=== PATIENT | female | born 1955 | race African-American/Black ===

== ENCOUNTER 2018-04-17 08:44 | Outpatient (CLI) | payer BC | END 2018-04-17 08:45 | disposition home or self-care (01) | LOC: BICULT 08:44 | PROVIDERS: ATTEND Family Medicine | DX: K76.0 Fatty (change of) liver, not elsewhere classified (principal); R10.84 Generalized abdominal pain; Z90.49 Acquired absence of other specified parts of digestive tract; Z90.710 Acquired absence of both cervix and uterus | CPT/HCPCS: 76700; 76856 ==

== ENCOUNTER 2018-04-17 13:16 | Observation (INO) | payer BC ==
[2018-04-17 13:54] LABS: #Basophils 0.1 thou/uL (0.0-0.2); #Eosinphils 0.2 thou/uL (0.0-0.7); #Lymphocytes 4.4 thou/uL (1.20-3.40); #Monocytes 0.7 thou/uL (0.11-0.59); #Neutrophils 5.9 thou/uL (1.40-6.50); %Basophils 0.7 % (0.0-1.0); %Eosinophils 1.8 % (0.0-10.0); %Lymphocytes 39.4 % (21.0-51.0); %Monocytes 5.9 % (0.0-10.0); %Neutrophils 52.2 % (42.0-75.0); Hemoglobin 12.3 g/dL (12.0-16.0); Mean Corpuscular HGB CONC 33.5 g/dL (32.0-36.0); Mean Corpuscular Hemoglobin 29.7 pg (27.0-31.0); Mean Corpuscular Volume 88.7 fl (81.0-99.0); Mean Platelet Volume 8.2 fL (7.4-10.4); Platelet Count 226 thou/uL (130-400); RBC Distribution Width 11.3 % (11.5-14.5); Red Blood Cell (RBC) Count 4.15 mill/uL (4.20-5.40); White Blood Cell (WBC) Count 11.3 thou/uL (4.8-10.8)
--- NOTE | 2018-04-17 14:16 | RAD ---
2 VIEWS CHEST: Date: 04/17/18 COMPARISON: None. HISTORY: Chest pain and vibrations in heart for over a week. FINDINGS: Two views of the chest show normal sized cardiomediastinal silhouette. There is no evidence of consol idation, mass, or pleural effusion. The bones are unremarkable. IMPRESSION: No evidence of acute cardiopulmonary disease. POS: [facility]
[2018-04-17 14:22] LABS: ALT (SGPT) 52 U/L (8-55); AST (SGOT) 59 U/L (5-34); Albumin 4.4 g/dL (3.5-5.0); Alkaline Phosphatase 119 U/L (40-150); Anion Gap 9 mmol/L (10-20); BUN (Urea Nitrogen) 13 mg/dL (9.8-20.1); Bilirubin, Total 0.5 mg/dL (0.2-1.2); CK (CPK) 159 U/L (29-168); Calc. Creatinine Clearance 0 mL/min (70-130); Calcium 10.1 mg/dL (7.8-10.44); Carbon Dioxide 28 mmol/L (22-29); Chloride 108 mmol/L (98-107); Estimated GFR-MDRD 86; Globulin 2.9 g/dL (2.4-3.5); Lipase 50 U/L (8-78); Potassium 3.5 mmol/L (3.5-5.1); Protein, Total 7.3 g/dL (6.0-8.3); Sodium 141 mmol/L (136-145)
[2018-04-17 14:26] LABS: CKMB 1.3 ng/mL (0-6.6); Troponin I Less than 0.010 ng/mL (< 0.028)
[2018-04-17 14:27] LABS: Glucose 58 mg/dL (70-105)
[2018-04-17] MEDS ORDERED: Bisacodyl 5 MG TAB PO PRN (15:30)
[2018-04-17] MEDS ORDERED: Ondansetron HCl/PF 4 MG/2 ML Vial IVP PRN ×2 (15:30)
[2018-04-17] MEDS ORDERED: Dextrose 5% in Water 1,000 ML IV PRN (15:30)
[2018-04-17] MEDS ORDERED: Nitroglycerin 0.4 MG TAB (25 Tab Bottle) SL PRN (15:30)
[2018-04-17] MEDS ORDERED: HumaLOG 300 UNITS/3 ML VIAL SC PRN ×2 (15:30)
[2018-04-17] MEDS ORDERED: Mag-Al 1200 mg/1200 mg/30 ML UDCUP PO PRN (15:30)
[2018-04-17] MEDS ORDERED: Lorazepam 1 MG TAB PO PRN (15:30)
[2018-04-17] MEDS ORDERED: Loratadine 10 MG TAB PO PRN (15:30)
[2018-04-17] MEDS ORDERED: Benzonatate 100 MG CAP PO PRN (15:30)
[2018-04-17] MEDS ORDERED: Diabetic Tussin 200 MG/10 ML UDCUP PO PRN (15:30)
[2018-04-17] MEDS ORDERED: hydrALAZINE 20 MG/ML VIAL SLOW IVP PRN (15:30)
[2018-04-17] MEDS ORDERED: traMADol HCl 50 MG TAB PO PRN (15:30)
[2018-04-17] MEDS ORDERED: Dextrose 50% Abboject 50 ML SYRINGE SLOW IVP PRN (15:30)
[2018-04-17] MEDS ORDERED: cloNIDine 0.1 MG TAB PO PRN (15:30)
[2018-04-17] MEDS ORDERED: Calcium Carbonate 500 MG ChewTAB PO PRN (15:30)
[2018-04-17] MEDS ORDERED: Senokot 8.6 MG TAB PO PRN (15:30)
[2018-04-17 16:13] LABS: Cardiac Risk 3.4 (Less than 4.5)
--- NOTE | 2018-04-17 16:27 | HP ---
DATE OF ADMISSION: 04/17/2018 PRIMARY CARE PHYSICIAN: Antoino Arroyo M.D. CHIEF COMPLAINT: Palpitations and chest pain. HISTORY OF PRESENTING ILLNESS: Ms. Hui is a 62-year-old pleasant female with past medical histor y of hypertension, diabetes, and dyslipidemia who presented to the emergency room with above-mentione d complaints. History is mainly obtained by the patient herself. Electronic medical records have be en reviewed. According to Ms. Hui about 5 days ago, she started to have weird sensation in her chest which she describes it as a "vibration of phone." She did not have any other associated symptoms with this, b ut this morning she had few episodes of faint chest pain. She describes the pain as located in the l eft center of the chest and 5/10 in intensity. It did radiate to her left arm and it was associated with some nausea. She did have some diarrhea yesterday associated with abdominal pain. She reports that she actually underwent an abdominal ultrasound earlier this morning. She called her primary care physician with these symptoms and was advised to come to the emergency ro om. In the emergency room, her initial workup was unremarkable including a chest x-ray, 12-lead EKG and cardiac enzymes. She is hemodynamically stable and is now being admitted for further workup and rule out acute coronary syndrome. PAST MEDICAL HISTORY: 1. Diabetes mellitus. 2. Hypertension. 3. Dyslipidemia. 4. Remote history of tobacco abuse. PAST SURGICAL HISTORY: Cholecystectomy and hysterectomy. PSYCHIATRIC HISTORY: No anxiety, no depression. SOCIAL HISTORY: She quit smoking in 2007. No history of drug or alcohol abuse. FAMILY HISTORY: Significant for some sort of cardiac disease in her mother. Her mother was also a d iabetic. No family history of stroke. Her sister has breast cancer. The patient is up to date with her yearly mammograms. REVIEW OF SYSTEMS: The following complete review of systems was negative, unless otherwise mentioned in the HPI or below: Constitutional: Weight loss or gain, ability to conduct usual activities. Skin: Rash, itching. Eyes: Double vision, pain. ENT/Mouth: Nose bleeding, neck stiffness, pain, tenderness. Cardiovascular: Palpitations, dyspnea on exertion, orthopnea. Respiratory: Shortness of breath, wheezing, cough, hemoptysis, fever or night sweats. Gastrointestinal: Poor appetite, abdominal pain, heartburn, nausea, vomiting, constipation, or diarr hea. Genitourinary: Urgency, frequency, dysuria, nocturia. Musculoskeletal: Pain, swelling. Neurologic/Psychiatric: Anxiety, depression. Allergy/Immunologic: Skin rash, bleeding tendency. A 12-point review of systems was done, it is negative except for those mentioned in the history and p hysical. ALLERGIES: No known medication allergies. CURRENT MEDICATIONS: As listed in the emergency room record, metformin 1000 mg b.i.d., glipizide 10 mg daily, losartan 100 mg daily, Protonix 40 mg daily, and simvastatin 20 mg at bedtime. LABORATORY DATA AND IMAGING DATA: CBC shows WBCs at 11.3 without any left shift, otherwise unremarka ble. Serum chemistry: Chloride of 108, blood sugar of 58, AST 59, CK-MB and troponin within normal limit. Chest x-ray by my review has no evidence to suggest an acute cardiopulmonary edema or infiltr ate. A 12-lead EKG by my review shows normal sinus rhythm without any evidence of ST or T-wave burden es. PHYSICAL EXAMINATION: VITAL SIGNS: Upon presentation, blood pressure 178/88, pulse of 69, respirations 12, saturating 100% on room air, temperature 98.7. GENERAL: Awake, alert, oriented x3, no acute distress, very pleasant. HEENT: Mucous membrane is moist and pink. No oropharyngeal exudate or erythema. Head is normocepha lic, atraumatic. Pupils equal, reactive to light and accommodation. Extraocular movement intact. NECK: Supple without any lymphadenopathy, JVD or bruit. CHEST: Clear to auscultation without any wheezing, rales or rhonchi. CARDIOVASCULAR: Rate and rhythm is regular without any murmur, rubs or gallops. ABDOMEN: Soft, nontender, nondistended, positive bowel sounds. EXTREMITIES: Free of any cyanosis, clubbing, or edema. NEUROLOGIC: Examination is nonfocal. SKIN: Free of any rashes or bruises for warm and dry to touch. PSYCHIATRIC: Normal affect. IMPRESSION AND PLAN: 1. Chest pain and palpitations. Unclear etiology at this time. Initial workup seems unremarkable. The patient has multiple risk factors including diabetes, hypertension, dyslipidemia, and possibly f amily history. She will be admitted for further risk stratification as she has never had any cardiac workup done. We will continue to trend serial cardiac enzymes and obtain a nuclear medicine stress test. Continue daily aspirin and check a lipid panel. Continue statin for now. The patient was act ually referred to Cardiology as an outpatient by her primary care physician and has an upcoming appoi ntment with Dr. Ming Saldana of Cardiology on 05/14/2018. 2. Hypoglycemia. The patient has not eaten since this morning, but now she has in the emergency jarrell m. We will continue to follow Accu-Cheks a.c. and at bedtime and hypoglycemia protocol. 3. Elevated AST. AST is 59. She has chronic elevation of AST. She has undergone an abdominal ultr asound earlier this morning with results not available as yet. This seems to be chronic and can be d ealt within the outpatient setting. 4. Diabetes mellitus. Start her on insulin sliding scale with frequent Accu-Cheks. Restart home me dications of metformin and glipizide. 5. History of hypertension, poorly controlled upon presentation. We will restart her losartan and a dd p.r.n. antihypertensives. 6. Dyslipidemia. Restart simvastatin. 7. Code status: FULL CODE discussed with the patient. 8. Deep venous thrombosis and gastrointestinal prophylaxis, p.r.n. medication. DISPOSITION: Ms. Hui is currently being admitted to observation status for chest pain workup and ACS rule out. Further management will depend upon her clinical course.
[2018-04-17 16:57] VITALS: BMI 29.4
[2018-04-17 18:12] LABS: Bilirubin Negative (Negative); Blood, Urine Negative (Negative); Clarity CLEAR (Clear); Glucose, Urine (Dipstick) Negative (Negative); Leukocyte Negative (Negative); Nitrite Negative (Negative); Protein, Urine (Dipstick) Negative (Neg-Trace); Specific Gravity, Urine 1.021 (1.002-1.036)
[2018-04-17 18:14] LABS: Bacteria/HPF None Seen HPF (None Seen); Hyaline Casts/LPF 0-3 HYALINE CAST LPF (0-3 Hyaline); RBC/HPF 0-3 HPF (0-3); Squamous Epithelial None Seen HPF (0-3); WBC/HPF 0-3 HPF (0-3)
[2018-04-17 20:04] LABS: CKMB 1.1 ng/mL (0-6.6); Troponin I Less than 0.010 ng/mL (< 0.028)
[2018-04-17] MEDS ORDERED: Atorvastatin Calcium 10 MG TAB PO SCH (21:00)
[2018-04-17] MEDS ORDERED: Famotidine 20 MG TAB PO SCH (21:00)
[2018-04-18 04:54] LABS: #Eosinphils 0.2 thou/uL (0.0-0.7); #Lymphocytes 3.8 thou/uL (1.20-3.40); #Monocytes 0.6 thou/uL (0.11-0.59); #Neutrophils 5.6 thou/uL (1.40-6.50); %Basophils 0.5 % (0.0-1.0); %Monocytes 5.9 % (0.0-10.0); %Neutrophils 54.8 % (42.0-75.0); Hemoglobin 11.6 g/dL (12.0-16.0); Mean Corpuscular HGB CONC 32.5 g/dL (32.0-36.0); Mean Corpuscular Hemoglobin 28.9 pg (27.0-31.0); Mean Corpuscular Volume 88.9 fl (81.0-99.0); Mean Platelet Volume 8.7 fL (7.4-10.4); Platelet Count 211 thou/uL (130-400); RBC Distribution Width 11.4 % (11.5-14.5); White Blood Cell (WBC) Count 10.3 thou/uL (4.8-10.8)
[2018-04-18 04:55] LABS: Anion Gap 11 mmol/L (10-20); BUN (Urea Nitrogen) 12 mg/dL (9.8-20.1); Calc. Creatinine Clearance 88 mL/min (70-130); Calcium 9.3 mg/dL (7.8-10.44); Carbon Dioxide 28 mmol/L (22-29); Chloride 105 mmol/L (98-107); Estimated GFR-MDRD 87; Glucose 140 mg/dL (70-105); Potassium 3.5 mmol/L (3.5-5.1); Sodium 140 mmol/L (136-145)
[2018-04-18] MEDS: Acetaminophen 325 MG TAB PO PRN ×2 (05:34→11:23)
[2018-04-18] MEDS ORDERED: Aspirin 325 mg Enteric Coated Tablet PO SCH (09:00)
[2018-04-18] MEDS ORDERED: Losartan 25 MG TAB PO SCH (09:00)
[2018-04-18] MEDS ORDERED: Enoxaparin Sodium 40 MG/0.4 ML SYRINGE SC SCH (09:00)
[2018-04-18] MEDS ORDERED: ADENOSINE 60 MG/20 ML VIAL ONE (10:12)
[2018-04-18 12:07] VITALS: BP 156/72; TEMP 97.9
--- NOTE | 2018-04-18 13:30 | NM ---
MYOCARDIAL PERFUSION SCAN WITH SPECT IMAGING: HISTORY: Chest pain. Hypertension. Dyslipidemia. TECHNIQUE/FINDINGS: Examination is performed using 33 mCi 99m-technetium sestamibi on the stress and 11 on the resting im ages. This shows a normal distribution of radiopharmaceutical. No signs of ischemia or scar. WALL MOTION: There is symmetric contractility to the ventricle. LEFT VENTRICULAR EJECTION FRACTION: The calculated left ventricular ejection fraction is 63%. IMPRESSION: Unremarkable myocardial perfusion scan. POS: [facility]
--- NOTE | 2018-04-18 14:01 | PDOC.PN ---
- Subjective Encounter Start Date: 04/18/18 Encounter Start Time: 08:00 Subjective: no chest pain or palp - Objective MAR Reviewed: Yes Vital Signs & Weight: Vital Signs (12 hours) Temp Pulse Resp BP Pulse Ox 04/18/18 11:12 97.9 F 65 16 156/72 H 100 04/18/18 07:24 97.6 F 58 L 16 146/72 H 99 04/18/18 04:05 98.2 F 67 16 137/86 98 Weight Weight 166 lb I&O: 04/17/18 04/18/18 04/19/18 06:59 06:59 06:59 Intake Total 480 Output Total 300 Balance 180 Result Diagrams: 04/18/18 04:09 04/18/18 04:09 Additional Labs: Accuchecks 04/18/18 04/17/18 11:16 20:27 POC Glucose 157 H 160 H Phys Exam - Physical Examination HEENT: PERRLA, moist MMs Neck: no JVD, supple Respiratory: no wheezing, no rales Cardiovascular: RRR, no significant murmur Gastrointestinal: soft, non-tender, positive bowel sounds Musculoskeletal: no edema, pulses present Neurological: non-focal, moves all 4 limbs Psychiatric: normal affect, A&O x 3 Dx/Plan (1) Chest pain Code(s): R07.9 - CHEST PAIN, UNSPECIFIED Status: Acute Qualifiers: Chest pain type: unspecified Qualified Code(s): R07.9 - Chest pain, unspecified (2) DM type 2 (diabetes mellitus, type 2) Status: Chronic Qualifiers: Diabetes mellitus jail insulin use: without termite control service representative use Diabetes mellitus complication status: with unspecified complications Qualified Code(s) : E11.8 - Type 2 diabetes mellitus with unspecified complications (3) HTN (hypertension) Code(s): I10 - ESSENTIAL (PRIMARY) HYPERTENSION Status: Chronic Qualifiers: Hypertension type: essential hypertension Qualified Code(s): I10 - Essential (primary) hypertension (4) Dyslipidemia Code(s): E78.5 - HYPERLIPIDEMIA, UNSPECIFIED Status: Chronic - Plan ldl is 69 -: stress test shows no signs of rev ischemia -: hemostable -: dc pt home * .
--- NOTE | 2018-04-19 23:38 | DIS ---
DATE OF ADMISSION: 04/17/2018 DATE OF DISCHARGE: 04/18/2018 DISCHARGE DISPOSITION: To home. PRIMARY DISCHARGE DIAGNOSES: Chest pain, which is noncardiac; diabetes mellitus type 2; dyslipidemia ; hypertension. PROCEDURES DONE DURING HOSPITALIZATION: Nuclear stress test done showed EF of 63% with symmetric con tractility of the ventricle. No signs of ischemia or scar were seen. Chest x-ray done showed no acu te cardiopulmonary disease. H and H 11 and 35, platelet count 211,000. MCV is 88, LDL 69, HDL 40. Total cholesterol 134, triglycerides 124. Cardiac enzymes x2 were negative. BUN 13, creatinine 0.8. Lipase was 50. DISCHARGE MEDICATIONS: Losartan 100 mg p.o. q.a.m., metformin extended release 1000 mg p.o. twice da nichelle, glipizide extended release 10 mg p.o. q.a.m., Protonix 40 mg p.o. daily, simvastatin 20 mg p.o. at bedtime, Motrin p.r.n. for pain. ALLERGIES: No known drug allergies. DISCHARGE PLAN: Patient is to follow up with primary care physician in 1 week. BRIEF COURSE DURING HOSPITALIZATION: Patient initially came to ER with complaints of palpitations an d chest pain. She was placed under observation on telemetry and ACS evidence based protocol was foll owed due to multiple risk factors for ACS. Two sets of cardiac enzymes are negative. Nuclear stress test done showed no reversible ischemia. She remained hemodynamically stable. She needs follow up with primary care physician in 1 week. Please see a [id number] documentation on [facility] for the d ay of discharge.
--- NOTE | 2018-04-22 14:44 | EKG ---
Test Reason : Blood Pressure : / mmHG Vent. Rate : 072 BPM Atrial Rate : 072 BPM P-R Int : 128 ms QRS Dur : 088 ms QT Int : 392 ms P-R-T Axes : 063 032 052 degrees QTc Int : 429 ms Normal sinus rhythm Normal ECG Confirmed by FAUZIA CARRILLO, JASON Enriquez ([id number]), technical editor AVI VALLES ([id number]) on 04/22/2018 2:44:01 PM Referred By: Confirmed By:JASON CAGE MD
== END 2018-04-18 14:21 | disposition home or self-care (01) ==
LOC: ERS 13:16 → 2SW 16:27
PROVIDERS: ADMIT Internal Medicine; ATTEND Internal Medicine
DX: R07.89 Other chest pain (principal); R00.2 Palpitations; E78.5 Hyperlipidemia, unspecified; E11.649 Type 2 diabetes mellitus with hypoglycemia without coma; I10 Essential (primary) hypertension; Z87.891 Personal history of nicotine dependence; Z79.84 Long term (current) use of oral hypoglycemic drugs; Z79.899 Other long term (current) drug therapy
CPT/HCPCS: 36415; 36416; 71046; 76700; 76856; 78452; 80048; 80053; 80061; 81001; 82550; 82553; 83690; 84484; 85025; 90471; 90732; 93005; 93017; A4216; A9500; G0009; G0378; J0153; J1650

== ENCOUNTER 2018-06-25 11:06 | Outpatient (CLI) | payer BC ==
--- NOTE | 2018-06-25 13:04 | MRI ---
BRAIN MRI WITHOUT IV CONTRAST: HISTORY: A 63-year-old female with a history of TIA/stroke. Headaches. No injury. TECHNIQUE: Multiplanar, multisequence MRI examination of the brain is performed. FINDINGS: There is no evidence for focal mass or midline shift. No intraaxial or extraaxial hemorrhage. Barbara l expected flow voids are noted. Prominent ossification changes of the falx. No evidence for an acu te infarct. Minimal atrophy and chronic white matter ischemic changes bilaterally. IMPRESSION: Mild chronic white matter ischemic change. No evidence for acute infarct. No mass, bleed, or other acute process. Minute ethmoid sinus mucosal congestion. POS: [facility]
== END 2018-06-25 11:07 | disposition home or self-care (01) ==
LOC: MRI 11:06
PROVIDERS: ATTEND Family Medicine
DX: I63.9 Cerebral infarction, unspecified (principal); R90.82 White matter disease, unspecified; R09.81 Nasal congestion
CPT/HCPCS: 70551

== ENCOUNTER 2018-11-20 09:48 | Day surgery (SDC) | payer BC ==
[2018-11-19 09:26] VITALS: BMI 28.7
[~2018-11-20 09:48] MED LIST: CEFAZOLIN 1 GM VIAL ONE; Dexamethasone 20 MG/5 ML VIAL ONE; Ketorolac Tromethamine 30 MG/ML VIAL ONE; Ondansetron PF 4 MG/2 ML Vial ONE; PROPOFOL 200 MG/20 ML VIAL ONE; Sterile Water 10 ML VIAL ONE
[2018-11-20] MEDS ORDERED: CEFAZOLIN 2 GM/50 ML BAG ONE (10:57)
[2018-11-20] MEDS ORDERED: Lidocaine 1% (PF) 30 ML VIAL ONE (10:57)
[2018-11-20 11:23] LABS: #Basophils 0.1 thou/uL (0.0-0.2); #Eosinphils 0.1 thou/uL (0.0-0.7); #Lymphocytes 3.7 thou/uL (1.20-3.40); #Monocytes 0.5 thou/uL (0.11-0.59); #Neutrophils 5.1 thou/uL (1.40-6.50); %Basophils 0.7 % (0.0-1.0); %Eosinophils 1.3 % (0.0-10.0); %Lymphocytes 38.9 % (21.0-51.0); %Monocytes 4.8 % (0.0-10.0); %Neutrophils 54.2 % (42.0-75.0); Hemoglobin 13.1 g/dL (12.0-16.0); Mean Corpuscular HGB CONC 32.4 g/dL (32.0-36.0); Mean Corpuscular Hemoglobin 28.5 pg (27.0-31.0); Mean Corpuscular Volume 88.1 fL (78.0-98.0); Platelet Count 233 thou/uL (130-400); RBC Distribution Width 11.6 % (11.5-14.5); Red Blood Cell (RBC) Count 4.59 mill/uL (4.20-5.40); White Blood Cell (WBC) Count 9.4 thou/uL (4.8-10.8)
--- NOTE | 2018-11-21 17:42 | OP ---
DATE OF PROCEDURE: 11/20/2018 PREOPERATIVE DIAGNOSIS: Right carpal tunnel syndrome. POSTOPERATIVE DIAGNOSIS: Right carpal tunnel syndrome. PROCEDURE PERFORMED: 1. Right open carpal tunnel release. 2. Placement of short-arm volar splint, right upper extremity. NATURAL SCIENCES MANAGER: None. BLOOD LOSS: Minimal. COMPLICATIONS: None. ANESTHESIA: She did have general anesthetic. DISPOSITION: The patient went to the recovery room in stable condition. INDICATIONS: This is a 63-year-old female who comes in complaining of long-term problems with her right hand. The patient has had numbness, tingling, and pain. She had EMG/NCV to confirm [id number] carpal tunnel syndrome and at this time opted to have surgical release. DESCRIPTION OF PROCEDURE: After all appropriate consent forms were explained and signed, the patient was taken back to the operating room and at this time was given IV sedation. A well-padded tourniquet was placed on the right arm and the arm was then prepped and draped in the standard surgical fashion. The incision was then drawn out and infiltrated with plain lidocaine. Limb was exsanguinated and tourniquet taken up to 250 mmHg. At this time, using Loupe magnification, a 15 blade was used to incise down through skin. Bipolar cautery was used to coagulate any brisk venous bleeding. We then placed a small hemostat to protect the underlying median nerve and transected the transverse carpal ligament using multiple 15 blades as well as scissors. Once this was done, a small finger was inserted to palpate for any remaining bands. At this time, a moist Ray-Belinda sponge was placed into the wound. Tourniquet was let down and pressure was held. Bipolar cautery used to coagulate any brisk venous bleeding. The wound was then irrigated with saline solution and we then evaluated the nerve. The nerve was found to be significantly injected, the nerve was intact, there were no masses noted, and the underlying flexor tendons were in good condition. At this time, we irrigated and dried the wound. We then placed multiple nylon stitches to close the incision. A bulky sterile hand dressing and a small volar splint were then placed. The patient was then awakened and taken to recovery in stable condition. All counts were correct at the end of the case. The patient received preoperative IV antibiotics. Job ID: [id number]
== END 2018-11-20 16:00 | disposition home or self-care (01) ==
LOC: SDC 09:48
PROVIDERS: ATTEND Orthopaedic Surgery
PROC: 01N50ZZ Release Median Nerve, Open Approach (ICD-10-PCS; principal; 2018-11-20)
DX: G56.01 Carpal tunnel syndrome, right upper limb (principal); I10 Essential (primary) hypertension; E11.9 Type 2 diabetes mellitus without complications; Z90.710 Acquired absence of both cervix and uterus; Z90.49 Acquired absence of other specified parts of digestive tract; Z79.82 Long term (current) use of aspirin; Z79.84 Long term (current) use of oral hypoglycemic drugs; Z79.899 Other long term (current) drug therapy; Z98.890 Other specified postprocedural states
CPT/HCPCS: 85025; A4216; J0690; J1100; J1885; J2001; J2405; J2704

== ENCOUNTER 2019-01-28 07:25 | Outpatient (CLI) | payer BC ==
--- NOTE | 2019-01-28 08:31 | ULT ---
ABDOMINAL ULTRASOUND: Date: 01/28/19 HISTORY: Pain. COMPARISON: None. TECHNIQUE: Utilizing a multihertz transducer, sonographic imaging of the abdomen is performed in the longitudina l and transverse plane. FINDINGS: The head and proximal pancreatic body have a normal echotexture. The remainder of the pancreas is obs cured by bowel gas. Visualized aorta is unremarkable. Suboptimal evaluation of the inferior vena cava . Increased echogenicity of the liver may be due to hepatic steatosis or hepatocellular disease. Subseq uent evaluation for hepatic masses and intrahepatic biliary dilatation is limited. Mild hepatomegaly with the right hepatic lobe measuring 17.3 cm. Portal vein is patent. Appropriate direction of flow. Limited evaluation of the common bile duct. Suggested common bile duct measures 0.8 cm. Gallbladder i s surgically absent. Bilaterally, no hydronephrosis. Left and right kidney have a normal cortical echotexture. Right kidne y measures 9.6 x 4.8 x 4.2 cm. Left kidney measures 6.0 x 5.1 x 10.3 cm. Spleen has a normal echotexture with a maximum SUV of 7.5 cm. IMPRESSION: Increased echogenicity of the liver, which may be due to hepatic steatosis or hepatocellular disease. If there is concern for hepatic masses, liver mass protocol CT could be performed. POS: [facility]
== END 2019-01-28 07:26 | disposition home or self-care (01) ==
LOC: BICULT 07:25
PROVIDERS: ATTEND Family Medicine
DX: R10.84 Generalized abdominal pain (principal); R93.2 Abnormal findings on diagnostic imaging of liver and biliary tract
CPT/HCPCS: 76700

== ENCOUNTER 2019-03-12 09:51 | Outpatient (CLI) | payer BC ==
--- NOTE | 2019-03-12 11:06 | CT ---
CT Abdomen W WO Con HISTORY: Abnormal ultrasound of the liver, elevated LFTs COMPARISON: Ultrasound of 01/28/2019 FINDINGS: The lung bases are clear. There are calcified granulomas in the spleen. The patient is post cholecystectomy. The pancreas and adrenal glands are normal. There are small low-density lesions in the kidneys measuring 5-6 mm likely cyst. The liver demonstrates decreased attenuation compared to the spleen consistent with fatty infiltratio n. No focal mass or abnormal biliary ductal dilatation is seen. No free air or free fluid in lymphadenopathy is noted in the abdomen. There are vascular calcificatio ns without evidence of aneurysmal dilatation of the abdominal aorta. There are postoperative changes in the lower lumbar spine. There is colonic diverticulosis IMPRESSION: 1. Fatty liver without hepatic mass 2. Calcified splenic granulomas 3. Probably tiny renal cysts 4. Colonic diverticulosis
[2019-03-12] MEDS ORDERED: ISOVUE-370 76%-LOCM 1 ML ONE (15:05)
== END 2019-03-12 09:52 | disposition home or self-care (01) ==
LOC: BICCT 09:51
PROVIDERS: ATTEND Internal Medicine Gastroenterology
DX: K21.9 Gastro-esophageal reflux disease without esophagitis (principal); R93.5 Abnormal findings on diagnostic imaging of other abdominal regions, including retroperitoneum; R94.5 Abnormal results of liver function studies; K76.0 Fatty (change of) liver, not elsewhere classified; D73.89 Other diseases of spleen; K57.30 Diverticulosis of large intestine without perforation or abscess without bleeding; Z86.010 Personal history of colon polyps
CPT/HCPCS: 74170; 82565; Q9966

== ENCOUNTER → 2019-03-25 | Day surgery (SDC) | payer BC ==
[2019-03-24 13:46] VITALS: BMI 27.1
[~2019-03-25] MED LIST changes: -CEFAZOLIN 1 GM VIAL ONE; -Dexamethasone 20 MG/5 ML VIAL ONE; +Fentanyl 100 MCG/2 ML VIAL ONE; -Ketorolac Tromethamine 30 MG/ML VIAL ONE; +Midazolam HCl 2 mg/2 ml Vial ONE; -Ondansetron PF 4 MG/2 ML Vial ONE; -PROPOFOL 200 MG/20 ML VIAL ONE; +Sodium Bicarbonate 2.5 MEQ/5 ML VIAL ONE; -Sterile Water 10 ML VIAL ONE
[2019-03-25 07:56] LABS: #Basophils 0.1 thou/uL (0.0-0.2); #Eosinphils 0.2 thou/uL (0.0-0.7); #Lymphocytes 3.3 thou/uL (1.20-3.40); #Monocytes 0.5 thou/uL (0.11-0.59); #Neutrophils 4.8 thou/uL (1.40-6.50); %Basophils 0.7 % (0.0-1.0); %Eosinophils 2.1 % (0.0-10.0); %Lymphocytes 37.4 % (21.0-51.0); %Monocytes 5.6 % (0.0-10.0); %Neutrophils 54.3 % (42.0-75.0); Hemoglobin 11.8 g/dL (12.0-16.0); Mean Corpuscular HGB CONC 32.5 g/dL (32.0-36.0); Mean Corpuscular Hemoglobin 28.8 pg (27.0-31.0); Mean Corpuscular Volume 88.7 fL (78.0-98.0); Mean Platelet Volume 8.2 fL (7.4-10.4); Platelet Count 211 thou/uL (130-400); RBC Distribution Width 11.4 % (11.5-14.5); Red Blood Cell (RBC) Count 4.11 mill/uL (4.20-5.40); White Blood Cell (WBC) Count 8.8 thou/uL (4.8-10.8)
[2019-03-25 08:02] LABS: PTT 26.6 SEC (22.9-36.1); Prothrombin Time 13.2 SEC (12.0-14.7)
[2019-03-25 08:58] VITALS: BP 137/81; TEMP 98.1
--- NOTE | 2019-03-25 09:56 | ULT ---
Ultrasound-guided random liver biopsy INDICATION: Abnormal LFTs TECHNIQUE: Informed consent was obtained. Preprocedure ultrasound images were obtained for guidance p urposes only. Site overlying the liver was prepped and draped in the usual sterile fashion. Buffered 1% lidocaine was administered overlying subcutaneous tissues. The patient underwent consciou s sedation under guidance of the radiology nurse. The patient received 50 mcg of IV fentanyl and 1 mg of IV Versed. Small incision was made. A 17-gauge trocar needle was guided down into the left hepa tic lobe. An 18-gauge core needle was then inserted within the trocar needle and a single 2.2 cm core sample was obtained. Pressure was held at the biopsy site until hemostasis was obtained. The pat ient tolerated the biopsy without difficulty. IMPRESSION: Successful ultrasound-guided left hepatic lobe biopsy.
== END ==
LOC: ULT 08:01
PROVIDERS: ATTEND Internal Medicine Gastroenterology
PROC: 0FB23ZX Excision of Left Lobe Liver, Percutaneous Approach, Diagnostic (ICD-10-PCS; principal; 2019-03-25)
DX: K76.0 Fatty (change of) liver, not elsewhere classified (principal); K74.0 Hepatic fibrosis; I10 Essential (primary) hypertension; K21.9 Gastro-esophageal reflux disease without esophagitis; E11.9 Type 2 diabetes mellitus without complications; E78.5 Hyperlipidemia, unspecified; E78.00 Pure hypercholesterolemia, unspecified; E66.9 Obesity, unspecified; Z68.27 Body mass index [BMI] 27.0-27.9, adult; Z86.010 Personal history of colon polyps; Z87.891 Personal history of nicotine dependence; Z79.82 Long term (current) use of aspirin; Z79.84 Long term (current) use of oral hypoglycemic drugs; Z79.899 Other long term (current) drug therapy
CPT/HCPCS: 36415; 47000; 76942; 85025; 85610; 85730; 88307; 88313; J2250; J3010

== ENCOUNTER 2019-12-10 08:35 | Outpatient (CLI) | payer BC ==
--- NOTE | 2019-12-10 09:28 | MMO ---
Bilateral MAMMO Bilat Screen DDI+KG. CLINICAL HISTORY: Patient is 64 years old and is seen for screening. The patient has the following family history of breast cancer: sister, at age 55. The patient has no personal history of cancer. VIEWS: The views performed were: bilateral craniocaudal with tomosynthesis and bilateral mediolateral oblique with tomosynthesis. FILMS COMPARED: The present examination has been compared to prior imaging studies performed at [facility] on 10/27/2013, 09/19/2015, 09/20/2016 and 10/28/2017. This study has been interpreted with the assistance of computer-aided detection. MAMMOGRAM FINDINGS: There are scattered fibroglandular densities. Finding 1: There are stable benign appearing calcifications seen in the left breast. Finding 2: There is a new mass measuring 5 millimeters seen in the posterior region of the left breast at 12 o'clock. In the right breast, there are no suspicious masses, calcifications or areas of architectural distortion. IMPRESSION: FINDING 2: NEW MASS IN THE LEFT BREAST REQUIRES ADDITIONAL EVALUATION. RECOMMEND DIAGNOSTIC MAMMOGRAM. ULTRASOUND MAY ALSO PROVE USEFUL AT RECALL. THE RESULTS OF THIS EXAM WERE SENT TO THE PATIENT. ACR BI-RADS Category 0 - Incomplete: Need additional imaging evaluation. [facility] will notify the patient of the need for additional imaging services. MAMMOGRAPHY NOTE: 1. A negative mammogram report should not delay a biopsy if a dominant of clinically suspicious mass is present. 2. Approximately 10% to 15% of breast cancers are not detected by mammography. 3. Adenosis and dense breasts may obscure an underlying neoplasm. Reported by: SARAH THOMPSON MD Electonically Signed: [id number]
== END 2019-12-10 08:36 | disposition home or self-care (01) ==
LOC: BICMAMMO 08:35
PROVIDERS: ATTEND Family Medicine
DX: Z12.31 Encounter for screening mammogram for malignant neoplasm of breast (principal); Z80.3 Family history of malignant neoplasm of breast; N63.20 Unspecified lump in the left breast, unspecified quadrant
CPT/HCPCS: 77063; 77067

== ENCOUNTER 2019-12-17 08:32 | Outpatient (CLI) | payer BC ==
--- NOTE | 2019-12-17 09:13 | MMO ---
Left Breast MAMMO Unilat Diag DDI LT+KG. CLINICAL HISTORY: Patient is 64 years old and is seen for diagnostic exam. The patient has the following family history of breast cancer: sister, at age 55. The patient has no personal history of cancer. VIEWS: The views performed were: left craniocaudal with tomosynthesis; left mediolateral oblique with tomosynthesis; and left mediolateral with tomosynthesis. FILMS COMPARED: The present examination has been compared to prior imaging studies performed at [facility] on 09/20/2016, 10/28/2017, 12/10/2019 and 12/17/2019. This study has been interpreted with the assistance of computer-aided detection. MAMMOGRAM FINDINGS: There are scattered fibroglandular densities. There is an equal density, oval mass measuring 5 millimeters with circumscribed margins seen in the posterior central region of the left breast. The appearance is suggestive of an intramammary lymph node but this is not certain. Sonographic findings are also nonspecific. IMPRESSION: MASS IN THE LEFT BREAST IS PROBABLY BENIGN. FOLLOW-UP IN 6 MONTHS IS RECOMMENDED. THE RESULTS OF THIS EXAM WERE SENT TO THE PATIENT. ACR BI-RADS Category 3 - Probably benign finding - short interval follow-up suggested. [facility] will notify the patient of the need for additional imaging services. MAMMOGRAPHY NOTE: 1. A negative mammogram report should not delay a biopsy if a dominant of clinically suspicious mass is present. 2. Approximately 10% to 15% of breast cancers are not detected by mammography. 3. Adenosis and dense breasts may obscure an underlying neoplasm. Reported by: SARAH THOMPSON MD Electonically Signed: [id number]
--- NOTE | 2019-12-17 10:30 | ULT ---
LIMITED LEFT BREAST ULTRASOUND: Date: 12/17/2019 PROVIDED CLINICAL HISTORY: Abnormal mammogram. FINDINGS: Limited sonographic interrogation of the left breast was performed in the region of mammographic conc jyalon. There is an oval, circumscribed hypoechoic nodule present at the 12 o'clock position measuring a bout 4.0 mm, with shape suggestive of, but not diagnostic of, a lymph node. No shadowing or other ove rly concerning findings. IMPRESSION: BI-RADS Category 3 - Probably benign findings. 6 month follow-up ultrasound and diagnostic mammogram are recommended. POS: OFF
== END 2019-12-17 08:33 | disposition home or self-care (01) ==
LOC: BICMAMMO 08:32
PROVIDERS: ATTEND Family Medicine
DX: N63.20 Unspecified lump in the left breast, unspecified quadrant (principal)
CPT/HCPCS: G0279

== ENCOUNTER 2020-06-20 09:30 | Outpatient (CLI) | payer BC ==
--- NOTE | 2020-06-20 10:14 | MMO ---
Left Breast MAMMO Unilat Diag DDI LT+KG. CLINICAL HISTORY: Patient is 65 years old and is seen for diagnostic exam. The patient has the following family history of breast cancer: sister, at age 55. The patient has no personal history of cancer. VIEWS: The views performed were: left craniocaudal with tomosynthesis; left mediolateral oblique with tomosynthesis; and left mediolateral with tomosynthesis. FILMS COMPARED: The present examination has been compared to prior imaging studies performed at [facility] on 12/10/2019, 12/17/2019 and 06/20/2020. This study has been interpreted with the assistance of computer-aided detection. MAMMOGRAM FINDINGS: There are scattered fibroglandular densities. There is a stable oval mass seen in the left breast at 12 o'clock. IMPRESSION: STABLE MASS IN THE LEFT BREAST IS PROBABLY BENIGN. FOLLOW-UP IN 6 MONTHS IS RECOMMENDED. THE RESULTS OF THIS EXAM WERE SENT TO THE PATIENT. ACR BI-RADS Category 3 - Probably benign finding - short interval follow-up suggested. [facility] will notify the patient of the need for additional imaging services. MAMMOGRAPHY NOTE: 1. A negative mammogram report should not delay a biopsy if a dominant of clinically suspicious mass is present. 2. Approximately 10% to 15% of breast cancers are not detected by mammography. 3. Adenosis and dense breasts may obscure an underlying neoplasm. Reported by: SARAH THOMPSON MD Electonically Signed: [id number]
--- NOTE | 2020-06-20 10:15 | ULT ---
EXAM: US Breast Limited Lt PROVIDED CLINICAL HISTORY: Left breast mass COMPARISON: 12/17/2019 FINDINGS: Limited sonographic interrogation of the left breast at the 12:00 position demonstrates a stable circ umscribed hypoechoic mass measuring about 5 mm. This appears oval in shape and demonstrates smooth margins without shadowing. IMPRESSION: Stable exam. Six-month follow-up diagnostic mammogram is recommended, at which time the patient will be due for bilateral mammography. BI-RADS 3 -- probably benign, 6-month follow-up
== END 2020-06-20 09:31 | disposition home or self-care (01) ==
LOC: BICMAMMO 09:30
PROVIDERS: ATTEND Family Medicine
DX: R92.8 Other abnormal and inconclusive findings on diagnostic imaging of breast (principal); N63.22 Unspecified lump in the left breast, upper inner quadrant
CPT/HCPCS: G0279

== ENCOUNTER 2022-10-15 08:51 | Outpatient (CLI) | payer BC | END 2022-10-15 08:52 | disposition home or self-care (01) | LOC: BICMAMMO 08:51 | PROVIDERS: ATTEND Family Medicine | DX: Z12.31 Encounter for screening mammogram for malignant neoplasm of breast (principal); Z80.3 Family history of malignant neoplasm of breast | CPT/HCPCS: 77063; 77067 ==